=== PATIENT | male | born 1970 | race Caucasian/White ===

== ENCOUNTER 2020-11-16 09:20 | Emergency (ER) | payer OTHER ==
[~2020-11-16] VITALS: Ht 175.3 cm; Wt 81.6 kg
[2020-11-16] MEDS ORDERED: COZAAR50 MG PO (09:50)
[2020-11-17] MEDS ORDERED: VITAMIN C500 M6 PO (00:06)
[2020-11-17] MEDS ORDERED: ZINC GLUCONATE100 MG PO (00:06)
[2020-11-17] MEDS ORDERED: VITAMIN D375 MCG PO (00:06)
[2020-11-17] MEDS ORDERED: ZITHROMAX500 MG PO (00:06)
[2020-11-17] MEDS ORDERED: MELATONIN10 MG PO (00:06)
== END 2020-11-17 00:25 | disposition home or self-care (01) ==
LOC: ER 09:20
DX: U07.1 COVID-19 (principal); J12.82 Pneumonia due to coronavirus disease 2019

== ENCOUNTER 2020-11-18 10:37 | Emergency (ER) | payer OTHER ==
[~2020-11-18] VITALS: Ht 175.3 cm; Wt 83.5 kg
[~2020-11-18 10:37] MED LIST: COZAAR50 MG PO; MELATONIN10 MG PO; VITAMIN C500 M6 PO; VITAMIN D375 MCG PO; ZINC GLUCONATE100 MG PO; ZITHROMAX500 MG PO
== END 2020-11-18 17:59 | disposition home or self-care (01) ==
LOC: ER 10:37
DX: U07.1 COVID-19 (principal)

== ENCOUNTER 2020-11-19 13:00 | Outpatient (CLI) | payer OTHER | END 2020-11-19 16:00 | disposition home or self-care (01) | LOC: ASH CLINIC 13:00 | PROVIDERS: ATTEND General Practice | DX: Z23 Encounter for immunization (principal); U07.1 COVID-19 ==

== ENCOUNTER 2020-11-19 18:36 | Inpatient (IN) | payer OTHER ==
[~2020-11-19] VITALS: Ht 175.3 cm; Wt 83.5 kg
== END 2020-12-08 03:47 | disposition expired | DRG 207 ==
LOC: ER 18:36 → SEC-K 11-20 01:07 → MEDJ 11-21 15:24 → ICU-2 11-22 15:22 → ICU 11-25 15:39
PROVIDERS: ADMIT Internal Medicine; ATTEND Internal Medicine
PROC: 4A033R1 Measurement of Arterial Saturation, Peripheral, Percutaneous Approach (ICD-10-PCS; 2020-11-20)
PROC: 8E0ZXY6 Isolation (ICD-10-PCS; 2020-11-20)
PROC: XW033E5 Introduction of Remdesivir Anti-infective into Peripheral Vein, Percutaneous Approach, New Technology Group 5 (ICD-10-PCS; 2020-11-20)
PROC: 3E0F7SF Introduction of Other Gas into Respiratory Tract, Via Natural or Artificial Opening (ICD-10-PCS; 2020-11-20)
PROC: XW0DXM6 Introduction of Baricitinib into Mouth and Pharynx, External Approach, New Technology Group 6 (ICD-10-PCS; 2020-11-20)
PROC: 5A09557 Assistance with Respiratory Ventilation, Greater than 96 Consecutive Hours, Continuous Positive Airway Pressure (ICD-10-PCS; 2020-11-26)
PROC: 02H633Z Insertion of Infusion Device into Right Atrium, Percutaneous Approach (ICD-10-PCS; 2020-11-29)
PROC: 5A1955Z Respiratory Ventilation, Greater than 96 Consecutive Hours (ICD-10-PCS; principal; 2020-11-30)
PROC: 0BH17EZ Insertion of Endotracheal Airway into Trachea, Via Natural or Artificial Opening (ICD-10-PCS; 2020-11-30)
PROC: 06HY33Z Insertion of Infusion Device into Lower Vein, Percutaneous Approach (ICD-10-PCS; 2020-12-03)
DX: U07.1 COVID-19 (principal); J12.82 Pneumonia due to coronavirus disease 2019; B37.1 Pulmonary candidiasis; I26.99 Other pulmonary embolism without acute cor pulmonale; J96.01 Acute respiratory failure with hypoxia; R65.20 Severe sepsis without septic shock; A41.9 Sepsis, unspecified organism; J96.02 Acute respiratory failure with hypercapnia; R04.2 Hemoptysis; N17.8 Other acute kidney failure; E87.4 Mixed disorder of acid-base balance; I10 Essential (primary) hypertension; Z20.822 Contact with and (suspected) exposure to COVID-19; E86.0 Dehydration; F41.9 Anxiety disorder, unspecified; R00.0 Tachycardia, unspecified; E09.65 Drug or chemical induced diabetes mellitus with hyperglycemia; D64.9 Anemia, unspecified; Z53.09 Procedure and treatment not carried out because of other contraindication; I46.8 Cardiac arrest due to other underlying condition
CPT/HCPCS: 71275